=== PATIENT | female | born 1990 | race Caucasian/White ===

== ENCOUNTER 2017-01-18 07:18 | Inpatient (IN) | payer MEDICAID, OTHER ==
[2017-01-12 14:47] LABS: BASOPHILS % (AUTO) 0.2 % (0.0-2.0); HEMATOCRIT 39.2 % (36-46); HEMOGLOBIN 13.5 g/dL (12.0-16.0); LYMPHOCYTES % (AUTO) 28.1 % (22.0-44.0); MEAN CORPUSCULAR HEMOGLOBIN 31.1 pg (26.0-34.0); MEAN CORPUSCULAR HGB CONC 34.3 G/dL (31.0-37.0); MEAN CORPUSCULAR VOLUME 91 fL (80-100); MONOCYTES # (AUTO) 0.4 K/uL (0.1-1.0); MONOCYTES % (AUTO) 5.8 % (2.0-9.0); NEUTROPHILS # (AUTO) 4.7 K/uL (1.8-7.7); NEUTROPHILS % (AUTO) 64.9 % (40.0-70.0); PLATELET COUNT (AUTO) 332 K/uL (150-450); RED BLOOD CELL COUNT(AUTO) 4.33 MIL/uL (4.00-5.20); RED CELL DISTRIBUTION WIDTH 12.5 % (11.5-14.5); WHITE BLOOD COUNT (AUTO) 7.3 K/uL (4.5-11.0)
[2017-01-12 15:00] LABS: ANION GAP 8 mmol/L (8-16); CALCIUM, TOTAL 9.2 mg/dL (8.8-10.5); CARBON DIOXIDE 26 mmol/L (22-29); CHLORIDE 103 mmol/L (98-107); CREATININE 0.62 mg/dL (0.60-1.30); GLOMERULAR FILTR. RATE CALC > 60 mL/min (>60); POTASSIUM 3.6 mmol/L (3.5-5.1); PROTHROMBIN TIME 10.7 SEC (9.4-11.6); SODIUM SERUM 137 mmol/L (136-145); UREA NITROGEN, BLOOD 7 mg/dL (7-18)
[2017-01-12 15:07] LABS: ALANINE AMINOTRANSFERASE 24 U/L (12-78); ALBUMIN 4.3 g/dL (3.4-5.0); ASPARTATE AMINOTRANSFERASE 18 U/L (15-37); BILIRUBIN,TOTAL 0.6 mg/dL (0.1-1.0); TOTAL PROTEIN, SERUM 8.3 g/dL (6.4-8.2)
[~2017-01-18] VITALS: Ht 154.9 cm; Wt 56.8 kg
[~2017-01-18 07:18] MED LIST: CYCL10 PO; NAPR-58 PO; ZOLP10TA7 PO
[2017-01-18] MEDS ORDERED: RINGERS SOLUTION,LACTATED 1,000 ML IV ONE ×2 (07:34→07:45)
[2017-01-18] MEDS ORDERED: CeFAZolin 2 GM/DEXTROSE 50 ML IV ONE ×2 (07:34→07:45)
[2017-01-18] MEDS ORDERED: HYDROmorphone 2 MG/ML SYRINGE IVP PRN (09:30)
[2017-01-18] MEDS ORDERED: BUPIVACAINE LIPOSOME/PF 1.3%-13.3MG/ML SUSPENSION 10 ML VIAL INJ ONE (09:30)
[2017-01-18] MEDS ORDERED: ZOLPIDEM TARTRATE 5 MG TABLET PO PRN (09:30)
[2017-01-18] MEDS ORDERED: PROMETHAZINE HCL 25 MG/ML VIAL IM PRN (09:30)
[2017-01-18] MEDS: ACETAMINOPHEN 1000 MG/ISO-OSM 100 ML IV SCH ×3 (09:30→20:55)
[2017-01-18] MEDS ORDERED: MEPERIDINE-PF 25 MG/ML SYRINGE IVP PRN (09:30)
[2017-01-18] MEDS ORDERED: ONDANSETRON HCL 4 MG/2 ML VIAL IVP PRN ×2 (09:30→09:45)
[2017-01-18] MEDS ORDERED: BUPIVACAINE HCL/PF 0.5% 30 ML VIAL ONE (09:43)
[2017-01-18] MEDS ORDERED: DiphenhydrAMINE HCL 50 MG/ML VIAL IVP PRN (09:45)
[2017-01-18] MEDS ORDERED: BENZOCAINE/MENTHOL LOZENGE [8 LOZENGES/PACKET] PO PRN (09:45)
[2017-01-18] MEDS ORDERED: ZOLPIDEM TARTRATE 10 MG TABLET PO PRN (09:45)
[2017-01-18] MEDS ORDERED: PROMETHAZINE HCL 12.5 MG in SODIUM CHLORIDE 0.9% 50 ML IV PRN (09:45)
[2017-01-18] MEDS ORDERED: VANCOMYCIN HCL 1 GM/VIAL ONE (10:07)
[2017-01-18] MEDS ORDERED: FentaNYL CITRATE-PF 100 MCG/2 ML VIAL ONE (11:05)
[2017-01-18] MEDS: FentaNYL CITRATE-PF 100 MCG/2 ML VIAL IVP PRN ×2 (11:08→11:48)
[2017-01-18] MEDS ORDERED: MEPERIDINE-PF 25 MG/ML SYRINGE ONE (11:18)
[2017-01-18] MEDS ORDERED: MIDAZOLAM HCL 2 MG/2 ML VIAL IVP ONE (12:00)
[2017-01-18] MEDS ORDERED: PROPOFOL 1% 20 ML VIAL IVP ONE (12:00)
[2017-01-18] MEDS ORDERED: GLYCOPYRROLATE 0.2 MG/ML VIAL IM ONE (12:00)
[2017-01-18] MEDS ORDERED: FentaNYL CITRATE-PF 100 MCG/2 ML VIAL IVP ONE (12:00)
[2017-01-18] MEDS ORDERED: ROCURONIUM BROMIDE 10 MG/ML 5 ML VIAL IVP ONE (12:00)
[2017-01-18] MEDS ORDERED: LIDOCAINE HCL/PF 2% 5 ML VIAL INJ ONE (12:00)
[2017-01-18] MEDS ORDERED: DEXAMETHASONE SOD PHOS 4 MG/ML VIAL IVP ONE (12:00)
[2017-01-18] MEDS ORDERED: 0.9% SODIUM CHLORIDE 10 ML VIAL IVP ONE (12:00)
[2017-01-18] MEDS ORDERED: PHENYLEPHRINE HCL 10 MG/ML VIAL IVP ONE (12:00)
[2017-01-18] MEDS ORDERED: NEOSTIGMINE METHYLSULFATE 1 MG/ML 10 ML VIAL IVP ONE (12:00)
[2017-01-18] MEDS ORDERED: ONDANSETRON HCL 4 MG/2 ML VIAL IVP ONE (12:00)
[2017-01-18] MEDS ORDERED: PROMETHAZINE HCL 25 MG/ML VIAL ONE (12:13)
[2017-01-18] MEDS ORDERED: HYDROmorphone 2 MG/ML SYRINGE ONE (12:25)
[2017-01-18 12:50] VITALS: BP 115/79
[2017-01-18] MEDS: HYDROmorphone 2 MG/ML SYRINGE IVP PRN ×3 (12:55→19:28)
[2017-01-18] MEDS ORDERED: INFLUENZA VIRUS VACCINE QVS 2017-18 (3YR+)/PF 60 MCG/0.5 ML SYRINGE IM ONE (15:45)
[2017-01-18 15:49] VITALS: BP 96/70
[2017-01-18 16:20] VITALS: BP 108/62
[2017-01-18 19:31] VITALS: BP 98/61
[2017-01-18] MEDS ORDERED: OXYGEN THERAPY IH SCH (20:00)
[2017-01-18] MEDS: DOCUSATE SODIUM 100 MG CAPSULE PO SCH (20:55)
[2017-01-19] VITALS (7 sets, daily range): BP systolic 90–99; BP diastolic 52–72
[2017-01-19] MEDS: CYCLOBENZAPRINE HCL 10 MG TABLET PO PRN ×2 (00:56→08:40)
[2017-01-19] MEDS: ACETAMINOPHEN 1000 MG/ISO-OSM 100 ML IV SCH (03:17)
[2017-01-19] MEDS: HYDROmorphone 2 MG/ML SYRINGE IVP PRN (07:57)
[2017-01-19] MEDS: DOCUSATE SODIUM 100 MG CAPSULE PO SCH (08:32)
[2017-01-19] MEDS: OxyCODONE HCL/ACETAMINOPHEN 10-325 MG TABLET PO PRN ×2 (10:25→14:48)
== END 2017-01-19 15:40 | disposition home or self-care (01) | DRG 520 ==
LOC: 4E 07:18
PROVIDERS: ADMIT Orthopaedic Surgery Orthopaedic Surgery of the Spine; ATTEND Orthopaedic Surgery Orthopaedic Surgery of the Spine
PROC: 0SB40ZZ Excision of Lumbosacral Disc, Open Approach (ICD-10-PCS; principal; 2017-01-18 09:45)
DX: M51.27 Other intervertebral disc displacement, lumbosacral region (principal); Z82.49 Family history of ischemic heart disease and other diseases of the circulatory system; Z83.3 Family history of diabetes mellitus
CPT/HCPCS: 87081; 97116; 97161; 97165; 97530; J0131; J0690; J1100; J1170; J2175; J2250; J2370; J2405; J2550; J2704; J3010; J3370; J3490; J7120

== ENCOUNTER 2018-08-09 11:52 | Emergency (ER) | payer OTHER ==
[~2018-08-09] VITALS: Ht 154.9 cm; Wt 59.1 kg
[2018-08-09] MEDS ORDERED: KETOROLAC TROMETHAMINE 60 MG/2 ML VIAL IM ONE (12:45)
[2018-08-09 12:59] VITALS: BP 118/71
== END 2018-08-09 12:59 | disposition home or self-care (01) ==
LOC: EMS 11:52
DX: M54.5 Low back pain (principal); G89.29 Other chronic pain; F12.90 Cannabis use, unspecified, uncomplicated; Z88.5 Allergy status to narcotic agent
CPT/HCPCS: 96372; 99283; J1885

== ENCOUNTER 2018-08-09 15:15 | Emergency (ER) | payer OTHER ==
[~2018-08-09] VITALS: Ht 157.5 cm; Wt 59.1 kg
[2018-08-09 15:55] LABS: GLUCOSE,POINT OF CARE 127 MG/DL (70-110)
[2018-08-09 16:21] LABS: BASOPHILS % (AUTO) 0.2 % (0.0-2.0); EOSINOPHILS % (AUTO) 0.3 % (1.0-6.0); HEMATOCRIT 36.2 % (36-46); HEMOGLOBIN 12.3 g/dL (12.0-16.0); LYMPHOCYTES # (AUTO) 1.1 K/uL (1.0-4.8); LYMPHOCYTES % (AUTO) 12.4 % (22.0-44.0); MEAN CORPUSCULAR HEMOGLOBIN 30.5 pg (26.0-34.0); MEAN CORPUSCULAR HGB CONC 33.8 G/dL (31.0-37.0); MEAN CORPUSCULAR VOLUME 90 fL (80-100); MONOCYTES # (AUTO) 0.4 K/uL (0.1-1.0); MONOCYTES % (AUTO) 4.4 % (2.0-9.0); NEUTROPHILS # (AUTO) 7.6 K/uL (1.8-7.7); NEUTROPHILS % (AUTO) 82.7 % (40.0-70.0); PLATELET COUNT (AUTO) 312 K/uL (150-450); RED BLOOD CELL COUNT(AUTO) 4.02 MIL/uL (4.00-5.20); RED CELL DISTRIBUTION WIDTH 12.4 % (11.5-14.5)
[2018-08-09 16:32] LABS: ANION GAP 11 mmol/L (8-16); CALCIUM, TOTAL 8.8 mg/dL (8.8-10.5); CARBON DIOXIDE 23 mmol/L (22-29); CHLORIDE 108 mmol/L (98-107); CREATININE 0.72 mg/dL (0.60-1.30); GLOMERULAR FILTR. RATE CALC > 60 mL/min (>60); GLUCOSE,RANDOM 96 mg/dL (70-110); POTASSIUM 3.5 mmol/L (3.5-5.1); SODIUM SERUM 142 mmol/L (136-145); UREA NITROGEN, BLOOD 11 mg/dL (7-18)
[2018-08-09 16:39] LABS: ALANINE AMINOTRANSFERASE 20 U/L (12-78); ALBUMIN 3.8 g/dL (3.4-5.0); ALKALINE PHOSPHATASE 83 U/L (46-116); ASPARTATE AMINOTRANSFERASE 17 U/L (15-37); BILIRUBIN,TOTAL 0.4 mg/dL (0.1-1.0); TOTAL PROTEIN, SERUM 7.3 g/dL (6.4-8.2)
[2018-08-09 16:53] VITALS: BP 122/68
== END 2018-08-09 17:51 | disposition home or self-care (01) ==
LOC: EMS 15:18
DX: R55 Syncope and collapse (principal); R42 Dizziness and giddiness; T50.995A Adverse effect of other drugs, medicaments and biological substances, initial encounter; M54.5 Low back pain; R11.0 Nausea; F12.90 Cannabis use, unspecified, uncomplicated; Z98.890 Other specified postprocedural states; Z88.6 Allergy status to analgesic agent; Z53.20 Procedure and treatment not carried out because of patient's decision for unspecified reasons; Y92.89 Other specified places as the place of occurrence of the external cause